=== PATIENT | male | born 1995 | race Caucasian/White ===

== ENCOUNTER 2020-11-14 19:35 | Emergency (ER) | payer BC ==
[~2020-11-14] VITALS: Ht 172.7 cm; Wt 75.9 kg
[2020-11-14 19:54] VITALS: Ht 172.7 cm; Wt 75.9 kg
[2020-11-14 23:20] VITALS: BP 141/99
== END 2020-11-14 23:51 | disposition home or self-care (01) ==
LOC: ED 19:35
DX: S61.411A Laceration without foreign body of right hand, initial encounter (principal); W26.0XXA Contact with knife, initial encounter; Y93.89 Activity, other specified; Y92.89 Other specified places as the place of occurrence of the external cause; Y99.8 Other external cause status
CPT/HCPCS: J2001